=== PATIENT | female | born 1975 | race Two or more races ===

== ENCOUNTER → 2019-03-05 | Outpatient (CLI) | payer OTHER | END | disposition home or self-care (01) | LOC: RAD 08:14 | DX: M25.572 Pain in left ankle and joints of left foot (principal) ==

== ENCOUNTER 2020-04-15 06:53 | Outpatient (CLI) | payer OTHER | END 2020-04-15 15:00 | disposition home or self-care (01) | LOC: LAB 06:53 | PROVIDERS: ATTEND Emergency Medicine Pediatric Emergency Medicine | DX: Z20.828 Contact with and (suspected) exposure to other viral communicable diseases (principal) ==

== ENCOUNTER → 2021-01-05 | Outpatient (CLI) | payer OTHER | END | disposition home or self-care (01) | LOC: RAD 12:50 | PROVIDERS: ATTEND Chiropractor | DX: S93.304A Unspecified dislocation of right foot, initial encounter (principal); S92.251 Displaced fracture of navicular [scaphoid] of right foot ==

== ENCOUNTER 2021-06-01 10:08 | Outpatient (CLI) | payer OTHER | END 2021-06-01 10:23 | disposition home or self-care (01) | LOC: RAD 10:08 | PROVIDERS: ATTEND Podiatrist | DX: M89.371 Hypertrophy of bone, right ankle and foot (principal) ==

== ENCOUNTER 2023-03-23 10:44 | Outpatient (CLI) | payer OTHER | END 2023-03-23 10:52 | disposition home or self-care (01) | LOC: RAD 10:44 | PROVIDERS: ATTEND Internal Medicine Pulmonary Disease | DX: J45.40 Moderate persistent asthma, uncomplicated (principal); J31.0 Chronic rhinitis ==